=== PATIENT | female | born 1965 | race American Indian/Alaskan Native ===

== ENCOUNTER 2017-02-16 18:55 | Emergency (ER) | payer SELFPAY ==
[2017-02-16 19:24] VITALS: BMI 35.1
[2017-02-16 19:28] VITALS: BP 135/83; PULSE 66; RESP 18; TEMP 98; O2SAT 99
[2017-02-16] MEDS ORDERED: Sodium Chloride 0.9% 1,000 ML IV SCH (19:45)
--- NOTE | 2017-02-16 19:45 | ED PDOC ---
Arrival/HPI - General Chief Complaint: Female Genitourinary Time Seen by Provider: 02/16/17 19:26 Historian: Patient - History of Present Illness Narrative History of Present Illness (Text): 02/16/17 19:44 51 year old female presents to the emergency department for evaluation of vaginal spotting of blood associated with abdominal cramps and back pain. Patient states she had a home test, which she believed to be possibly positive. If so, patient would be with 1 previous ectopic. Patient denies nausea, vomiting, or diarrhea. No fever or chills. No urinary complaints. Appetite intact. Time/Duration: < week Symptom Onset: Gradual Symptom Course: Unchanged Activities at Onset: Light Modifying Factors (Text): None Past Medical History - Provider Review Nursing Documentation Reviewed: Yes - Infectious Disease Hx of Infectious Diseases: None - Psychiatric Hx Substance Use: No - Surgical History Other/Comment: ectopic . ovarian cyst - Anesthesia Hx Anesthesia: Yes Hx Anesthesia Reactions: No Hx Malignant Hyperthermia: No Family/Social History - Physician Review Nursing Documentation Reviewed: Yes Family/Social History: Unknown Family HX Smoking Status: Never Smoked Hx Alcohol Use: No Hx Substance Use: No Allergies/Home Meds Allergies/Adverse Reactions: Allergies Penicillins Allergy (Verified 02/16/17 19:24) RASH Review of Systems - Physician Review All systems were reviewed & negative as marked: Yes - Review of Systems Constitutional: absent: Fevers Gastrointestinal: Other (Abdominal cramps). absent: Diarrhea, Nausea, Vomiting Genitourinary Female: Vaginal Bleeding. absent: Dysuria, Hematuria Musculoskeletal: absent: Back Pain Physical Exam Vital Signs Reviewed: Yes Vital Signs Temp Pulse Resp BP Pulse Ox 02/16/17 19:27 98.0 F 66 18 135/83 99 Temperature: Afebrile Blood Pressure: Normal Pulse: Regular Respiratory Rate: Normal Appearance: Positive for: Well-Appearing, Non-Toxic, Comfortable Pain Distress: None Mental Status: Positive for: Alert and Oriented X 3 - Systems Exam Head: Present: Atraumatic, Normocephalic Pupils: Present: PERRL Extroacular Muscles: Present: EOMI Conjunctiva: Present: Normal Mouth: Present: Moist Mucous Membranes Neck: Present: Normal Range of Motion Respiratory/Chest: Present: Clear to Auscultation, Good Air Exchange. No: Respiratory Distress, Accessory Muscle Use Cardiovascular: Present: Regular Rate and Rhythm, Normal S1, S2. No: Murmurs Abdomen: Present: Normal Bowel Sounds. No: Tenderness, Distention, Peritoneal Signs Genitourinary/Pelvic Exam: Present: Cervical os Closed, Other (Scanty amount of blood in vaginal introitus. No active heavy bleeding. ). No: Adenexal Tenderness, Adenexal Mass, Cervical Motion Tendernes Back: Present: Normal Inspection Upper Extremity: Present: Normal Inspection. No: Cyanosis, Edema Lower Extremity: Present: Normal Inspection. No: Edema Neurological: Present: GCS=15, CN II-XII Intact, Speech Normal Skin: Present: Warm, Dry, Normal Color. No: Rashes Psychiatric: Present: Alert, Oriented x 3, Normal Insight, Normal Concentration Medical Decision Making ED Course and Treatment: Impression: 51 year old female presents to the emergency department for evaluation of vaginal spotting of blood associated with abdominal cramps and back pain. Plan: -- US transvaginal -- Labs, blood type and screen -- Reassess and disposition Progress Notes: 02/16/17 21:50 Reviewed sono, US Transvaginal shows: 1. Heterogeneous mass within endometrial canal/cervix. DDX: neoplasm, blood products. Clinical correlation and follow up are recommended. 2. Probable fibroid uterus. 3. RIGHT ovarian cyst. 4. Incidental/non-acute findings are described above. 02/16/17 22:23 Paged OBGYN boat person. 02/16/17 22:[address] Garcia, OBGYN, who reviewed ultrasound findings. Recommends outpt f/u this week with her [employer]. Case discussed with pt, who agrees will f/u with her [employer] and instructed to return if any recurring worsening symptom occur. - Lab Interpretations Lab Results: 02/16/17 19:43 02/16/17 19:43 Lab Results 02/16/17 19:43: WBC 9.2, RBC 3.99, Hgb 10.8 L, Hct 33.3 L, MCV 83.5, MCH 27.1, MCHC 32.4, RDW 16.8 H, Plt Count 268, MPV 10.8, Sodium 137, Potassium 3.9, Chloride 101, Carbon Dioxide 27, Anion Gap 13, BUN 13, Creatinine 0.7, Est GFR ( Amer) > 60, Est GFR (Non-Af Amer) > 60, Random Glucose 99, Calcium 9.4, Total Bilirubin 0.4, AST 25, ALT 30, Alkaline Phosphatase 95, Total Protein 7.5 , Albumin 3.9, Globulin 3.5, Albumin/Globulin Ratio 1.1, Beta HCG, Quant < 2.39 02/16/17 19:34: Urine Color Yellow, Urine Appearance Cloudy, Urine pH 7.0, Ur Specific [place] 1.020, Urine Protein Trace H, Urine Glucose (UA) Negative, Urine Ketones Negative, Urine Blood Large H, Urine Nitrate Negative, Urine Bilirubin Negative, Urine Urobilinogen 0.2, Ur Leukocyte Esterase Negative, Urine RBC Tntc, Urine WBC 1 - 3, Ur Epithelial Cells 1 - 3, Urine Bacteria Small , Urine HCG, Qual Negative I have reviewed the lab results: Yes - RAD Interpretation Narrative RAD Interpretations (Text): US Transvaginal shows: Uterus/cervix: Uterus measures 12.3 x 6.3 x 8.7 cm in size. Two uterine masses, larger measuring 3.0 x 2.8 x 3.4 cm. Endometrium: Up to 2.7 cm in thickness. Large heterogeneous lesion within endometrial canal/cervix. Right ovary: 3.5 x 1.8 x 3.0 cm in size. 1.8 x 1.2 x 1.6 cm anechoic lesion. Normal flow. Left ovary: Not visualized. Free fluid: No significant free fluid. Bladder: Unremarkable as visualized. IMPRESSION: 1. Heterogeneous mass within endometrial canal/cervix. DDX: neoplasm, blood products. Clinical correlation and follow up are recommended. 2. Probable fibroid uterus. 3. RIGHT ovarian cyst. 4. Incidental/non-acute findings are described above. Radiology Orders: 02/16/17 19:44 TRANSVAGINAL [US] Stat Bradder: Radiologist - Medication Orders Current Medication Orders: Sodium Chloride (Sodium Chloride 0.9%) 1,000 mls @ 100 mls/hr IV .Q10H TARA Last Admin: 02/16/17 19:53 Dose: 100 MLS/HR eMAR Start Stop Document 02/16/17 19:53 SE (Rec: 02/16/17 19:53 SE [id number]) Intravenous Solution Start Date 02/16/17 Start Time 19:53 Discontinued Medications Ketorolac Tromethamine (Toradol) 30 mg IVP ONCE ONE Stop: 02/16/17 21:48 - Scribe Statement The provider has reviewed the documentation as recorded by the Magdi Licona Provider Scribe Attestation: All medical record entries made by the Magdi were at my direction and personally dictated by me. I have reviewed the chart and agree that the record accurately reflects my personal performance of the history, physical exam, medical decision making, and the department course for this patient. I have also personally directed, reviewed, and agree with the discharge instructions and disposition. Disposition/Present on Arrival - Present on Arrival Any Indicators Present on Arrival: No History of DVT/PE: No History of Uncontrolled Diabetes: No Urinary Catheter: No History of Decub. Ulcer: No History Surgical Site Infection Following: None - Disposition Have Diagnosis and Disposition been Completed?: Yes Diagnosis: Dysfunctional uterine bleeding, Uterine leiomyoma Disposition: HOME/ ROUTINE Disposition Time: 23:02 Patient Plan: Discharge Condition: GOOD Discharge Instructions (ExitCare): Dysfunctional Uterine Bleeding (ED), Uterine Fibroids (ED) Additional Instructions: Take meds as prescribed/follow up with your trial court judge this week/if any recurrent worsening symptoms return to the emergency room. Prescriptions: Naproxen [Naprosyn] 500 mg PO BID PRN #14 tab PRN Reason: Pain
[2017-02-16 20:07] LABS: URINE BILIRUBIN NEGATIVE (NEGATIVE); URINE BLOOD LARGE (NEGATIVE); URINE GLUCOSE (UA) NEGATIVE (NEGATIVE); URINE KETONE NEGATIVE (NEGATIVE); URINE LEUKOCYTE ESTERASE NEGATIVE Leu/uL (NEGATIVE); URINE PROTEIN TRACE mg/dL (<30 mg/dL); URINE UROBILINOGEN 0.2 E.U./dL (<1 E.U./dL)
[2017-02-16 20:07] LABS: HEMATOCRIT 33.3 % (36.0-48.0); MEAN CELL VOLUME 83.5 fL (80.0-105.0); MEAN CORPUSCULAR HEMOGLOBIN 27.1 pg (25.0-35.0); MEAN CORPUSCULAR HGB CONC 32.4 g/dl (31.0-37.0); MEAN PLATELET VOLUME 10.8 fl (7.0-11.0); RED CELL DISTRIBUTION WIDTH 16.8 % (11.5-14.5); WHITE BLOOD COUNT 9.2 10^3/ul (4.5-11.0)
[2017-02-16 20:12] LABS: URINE COLOR YELLOW (YELLOW)
[2017-02-16 20:13] LABS: URINE APPEARANCE CLOUDY (CLEAR)
[2017-02-16 20:16] LABS: URINE BACTERIA SMALL (NEG); URINE RBC TNTC /hpf (0-2)
[2017-02-16 20:20] LABS: ALB/GLOB RATIO 1.1 (1.1-1.8); ALKALINE PHOSPHATASE 95 U/L (38-133); ALT/SGPT 30 U/L (7-56); AST/SGOT 25 U/L (15-39); BILIRUBIN,TOTAL 0.4 mg/dL (0.2-1.3); BLOOD UREA NITROGEN 13 mg/dL (7-21); CALCIUM 9.4 mg/dL (8.4-10.5); CARBON DIOXIDE 27 mmol/L (21-33); CHLORIDE 101 mmol/L (98-107); GFR AFRICAN-AMERICAN > 60; GLUCOSE,RANDOM 99 mg/dL (70-110); POTASSIUM 3.9 mmol/L (3.6-5.0); SODIUM 137 mmol/L (132-148); TOTAL PROTEIN 7.5 g/dL (5.8-8.3)
--- NOTE | 2017-02-16 21:32 | US ---
EXAM: US First Trimester, Transabdominal CLINICAL HISTORY: 51 years old, female; Pain; Pelvic pain; Patient HX: Pt is bleeding sine three days. ; Additional info: Pain/vaginal bleeding TECHNIQUE: Real-time transabdominal obstetrical ultrasound of the maternal pelvis and a first trimester with image documentation. COMPARISON: No relevant prior studies available. FINDINGS: Gestation: No intrauterine gestational sac. Uterus/cervix: Two uterine masses, larger measuring 3.0 x 2.8 x 3.4 cm. Heterogeneous material within open cervix. Ovaries: RIGHT ovary: 1.8 x 1.2 x 1.6 cm anechoic lesion. LEFT ovary: Not visualized. No adnexal masses. Free fluid: No significant free fluid. IMPRESSION: 1. Findings compatible with in progress. 2. RIGHT ovarian cyst. 3. Probable fibroid uterus. 4. Incidental/non-acute findings are described above. EXAM: US , Transvaginal CLINICAL HISTORY: 51 years old, female; Pain; Pelvic pain; Patient HX: Pt is bleeding sine three days. ; Additional info: Pain/vaginal bleeding TECHNIQUE: Real-time transvaginal obstetrical ultrasound of the maternal pelvis and a first trimester with image documentation. Transvaginal imaging was used for better evaluation of the fetus and adnexa. COMPARISON: No relevant prior studies available. FINDINGS: Gestation: No intrauterine gestational sac. Uterus/cervix: Two uterine masses, larger measuring 3.0 x 2.8 x 3.4 cm. Heterogeneous material within open cervix. Ovaries: RIGHT ovary: 1.8 x 1.2 x 1.6 cm anechoic lesion. LEFT ovary: Not visualized. No adnexal masses. Free fluid: No significant free fluid.
== END 2017-02-16 23:55 | disposition home or self-care (01) ==
LOC: MERGE 18:55 → ED 18:55
DX: N93.8 Other specified abnormal uterine and vaginal bleeding (principal); D25.9 Leiomyoma of uterus, unspecified
CPT/HCPCS: 76830; 80053; 81001; 84702; 84703; 85027; 96374; 99284; J1885; J7040